=== PATIENT | female | born 1950 | race Caucasian/White ===

== ENCOUNTER 2020-12-04 12:43 | Inpatient (IN) | payer MEDICARE, SELFPAY ==
[~2020-12-04] VITALS: Ht 162.6 cm; Wt 34.3 kg
[2020-12-04] MEDS ORDERED: NS 500 ML IV ONE (13:30)
--- NOTE | 2020-12-04 13:52 | REP ---
INDICATION: weakness. COMPARISON: None TECHNIQUE: Portable AP chest with the patient sitting. FINDINGS: The patient is rotated. There is diffuse interstitial coarsening and mild airspace disease throughout the right lung suggesting of infiltrate. There is mild interstitial coarsening throughout the left lung. No airspace disease. There are no pleural effusions. Cardiac size is normal. The lucille, mediastinum, and skeletal structures are unremarkable for positioning. IMPRESSION: Probable diffuse infiltrate throughout the right lung, however, there are no comparison studies to cyst in determining if this is a chronic change. Patient rotated. 1. Mild interstitial coarsening throughout the left lung. <Electronically signed by Nadeem Carney > 12/04/20 [id number]
[2020-12-04 15:36] LABS: RSV AMPLIFICATION NEGATIVE (NEGATIVE)
[2020-12-04] MEDS ORDERED: PIPERACILLIN/TAZOBACTAM SOD 3.375 GM in D5W MINI-BAG PLUS 50 ML IV ONE (17:15)
[2020-12-04] MEDS ORDERED: HYOS125TA PO (17:25)
[2020-12-04] MEDS ORDERED: FENT1DIS14 TOP (17:25)
[2020-12-04] MEDS ORDERED: CARB1SUS PO (17:25)
[2020-12-04] MEDS ORDERED: LORA2CON PO (17:25)
[2020-12-04] MEDS ORDERED: HYDR1LIQ PO (17:25)
--- NOTE | 2020-12-04 17:43 | HPE ---
HISTORY AND PHYSICAL DATE OF ADMISSION: 12/04/2020 CHIEF COMPLAINT: Suspected aspiration pneumonia. 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 HISTORY OF PRESENT ILLNESS: Jessica Schmidt is a 70-year-old first encounter at , brought by her daughter who lives in [place], who cannot take care of her mother at home anymore. Patient's medical history is most significant for squamous cell carcinoma of the tongue diagnosed 10/27/2020. She has severe protein-calorie malnutrition. Most of her medical care has been through the . The patient lives up in [place], [place] and it looks like she was in [facility] for a perforated viscus 10/25 to 11/15/2020. During that hospitalization, she had a G-tube with repair of a duodenal injury laparoscopic converted to open emergency exploratory laparotomy. During the course of hospitalization, she was found to have squamous cell carcinoma of the tongue and was on Hospice, but disenrolled from Hospice and wants to "fight." She does, however, want DNR/DNI and comfort measure status so we are trying to balance these competing interests. PAST MEDICAL HISTORY: 1. Seizure disorder. 2. GERD. 3. Hyperlipidemia. 4. Squamous cell carcinoma of the tongue status post chemotherapy and radiation therapy in October 2017. They planned a total glossectomy, but her condition was felt to be too advanced for that, and she was converted to palliative care and discharged to Hospice. [facility] has apparently visited the patient, but the patient expressed some resistance to palliative care and said she "wanted to fight." Today, however, she is agreeable to comfort measures and DNR/DNI status. MEDICATIONS: 1. She was using Fentanyl 25 plus 12 mcg patch every 72 hours and Hydromorphone through a G-tube q. 2 hours p.r.n. 2. Carbamazepine 200 mg t.i.d. through a G-tube. SOCIAL HISTORY: Thirty-pack year smoker who quit two years ago. ALLERGIES: Per EMR none known. FAMILY HISTORY: Non-contributory. REVIEW OF SYSTEMS: Not obtainable. PHYSICAL EXAMINATION: VITAL SIGNS: Her systolic pressure was 77/50 and her pulse was 115. GENERAL APPEARANCE: The patient is lying in bed. She is uncooperative. She received Narcan in the field and is having some withdrawal symptoms of yawning and irritability. She clutches at the stethoscope and examining hands. She is not able to speak and she does not cooperative with an oral exam. She looks premorbid, profoundly cachectic with temporal wasting, and atrophy of muscles of the upper and lower extremities. HEENT: Grossly unremarkable, but I could not look in her mouth. LUNGS: Clear. HEART: Regular rhythm. ABDOMEN: Soft and nontender. G-tube present. EXTREMITIES: No peripheral edema. Legs are somewhat contracted. I could not turn her to check for pressure sores. LABORATORY DATA: All pending. COVID test was negative. IMAGING DATA: Chest x-ray showed diffuse infiltrate in the right lung, diffuse interstitial changes in the left lung. IMPRESSION: 1. Right lung pneumonia probably aspiration. The patient is DO NOT RESUSCITATE (DNR) / DO NOT INTUBATE (DNI) status with comfort measures only, but wants antibiotics and intravenous (IV) fluid. I did meet with her daughter, Itzel, today in the presence of the patient. She has conflicted feelings as she knows her mother is near and wants her comfort to be the primary goal of therapy; however, she would like her to receive some IV fluid and antibiotics; so I think we can accommodate until we at least get the patient admitted and help the family orient to the grave situation. We will continue Zosyn and I have ordered IV fluids. 2. Protein-calorie malnutrition feeding through a G-tube. 3. 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 Not a candidate for surgical treatment. She has received chemo and radiation therapy in the past.
[2020-12-04] MEDS: D5W/0.9% SODIUM CHLORIDE 1,000 ML IV SCH ×2 (18:01→22:17)
[2020-12-04 18:46] VITALS: BP 78/48
[2020-12-04] MEDS: HYOSCYAMINE SULFATE 0.125 MG SUBL TABLET PO SCH (20:00)
[2020-12-04 20:28] LABS: VENOUS BASE EXCESS 3.7 (-2.0-2.0); VENOUS HCO3 29.2 MEQ/L (23.0-27.0); VENOUS O2 SATURATION 58.8 % (60.0-80.0); VENOUS PARTIAL PRESSURE CO2 47.6 mmHg (38.0-50.0); VENOUS PARTIAL PRESSURE O2 33.4 mmHg (30.0-50.0); VENOUS PH 7.405 UNITS (7.330-7.430); VENOUS TOTAL CO2 30.6 MEQ/L (24.0-28.0)
[2020-12-04 20:34] LABS: HEMATOCRIT 37.9 % (36.0-47.0); HEMOGLOBIN 10.5 g/dl (12.0-15.5); MEAN CORPUSCULAR HEMOGLOBIN 26.3 pg (27.0-33.0); MEAN CORPUSCULAR HGB CONC 27.7 g/dl (32.0-36.5); MEAN CORPUSCULAR VOLUME 94.8 fl (80.0-96.0); PLATELET COUNT, AUTOMATED 386 10^3/uL (150-450); WHITE BLOOD COUNT 21.9 10^3/uL (4.0-10.0)
[2020-12-04 21:12] LABS: MONOCYTES 3 % (0-5); NEUTROPHILS 85 % (28-66)
[2020-12-04 21:13] LABS: ANISOCYTOSIS 1+; PLATELET ESTIMATE NORMAL (NORMAL); POIKILOCYTOSIS 1+; TARGET CELLS 1+
[2020-12-04 21:14] LABS: HYPOCHROMASIA 2+; OVALOCYTES 1+; PLATELET CLUMPS SMALL AMT
[2020-12-04 21:14] LABS: ALBUMIN 1.9 GM/DL (3.2-5.2); BILIRUBIN,TOTAL 0.5 MG/DL (0.2-1.0); CALCIUM LEVEL 9.2 MG/DL (8.8-10.2); CREATININE FOR GFR 1.37 MG/DL (0.55-1.30); GLOMERULAR FILTRATION RATE 40.3 (>39); POTASSIUM SERUM 3.6 MEQ/L (3.5-5.1); PREALBUMIN 11.8 MG/DL (20.0-40.0); TOTAL PROTEIN 8.2 GM/DL (6.4-8.2)
[2020-12-04] MEDS: carBAMazepine 100MG 5ML SUSP ORAL SYRINGE *DRAW UP EXACT DOSE PO SCH (22:18)
[2020-12-05] MEDS: PIPERACILLIN/TAZOBACTAM SOD 3.375 GM in D5W MINI-BAG PLUS 50 ML IV SCH ×4 (01:05→23:14)
[2020-12-05] MEDS: HYOSCYAMINE SULFATE 0.125 MG SUBL TABLET PO SCH ×7 (01:05→23:26)
[2020-12-05 05:00] VITALS: BP 98/50
[2020-12-05] MEDS ORDERED: D5W/0.45% SODIUM CHLORIDE 1,000 ML IV SCH (07:20)
[2020-12-05] MEDS: ENOXAPARIN 30MG/0.3ML SYRINGE (J1650 PER 10MG) SC SCH ×2 (07:57→08:00)
[2020-12-05 08:10] LABS: HEMOGLOBIN 9.3 g/dl (12.0-15.5); MEAN CORPUSCULAR HEMOGLOBIN 26.6 pg (27.0-33.0); MEAN CORPUSCULAR HGB CONC 28.2 g/dl (32.0-36.5); MEAN CORPUSCULAR VOLUME 94.3 fl (80.0-96.0); PLATELET COUNT, AUTOMATED 338 10^3/uL (150-450); WHITE BLOOD COUNT 17.8 10^3/uL (4.0-10.0)
[2020-12-05 08:39] LABS: CALCIUM LEVEL 9.1 MG/DL (8.8-10.2); CREATININE FOR GFR 1.11 MG/DL (0.55-1.30); GLOMERULAR FILTRATION RATE 51.4 (>39); POTASSIUM SERUM 3.2 MEQ/L (3.5-5.1)
--- NOTE | 2020-12-05 10:38 | IPN ---
PROGRESS NOTE DATE: 12/05/2020 SUBJECTIVE: Jessica is seen [facility]. She was admitted basically for terminal care. She has nonoperative squamous cell carcinoma of the tongue, has been evaluated at [facility], was discharged on Hospice Care but after arriving at the home of her daughter in [place] (patient lives in [place]), the patient expressed that she wanted to "fight more" which the Hospice interpreted as not being consistent with her goals. The daughter brought her into the Emergency Room, cannot take care of her at home and we are working our way around conflicting emotions around her end of life care. The patient is NPO. She is asking to take something by mouth. She has an aspiration pneumonia. She is a DNR/DNI. OBJECTIVE: VITAL SIGNS: Blood pressure is 98/50, pulse is 100, afebrile 93% O2 saturation on 4 liters. GENERAL APPEARANCE: She is cachetic and showing signs of severe malnutrition. LUNGS: Scattered rhonchi on the right. HEART: Regular rate and rhythm. ABDOMEN: Soft, scaphoid, nontender. EXTREMITIES: Wasted. There is no edema. Lower extremities are a bit contracted. LABORATORY DATA: White count is down to 17.8, hemoglobin is 9.3, platelets are 338,000. She had labs drawn yesterday. Her sodium was 157, came back at 8 o'clock last night. I do not think this was reported anywhere. She was on normal saline overnight so now this morning her sodium is 159, potassium is 3.2. BUN 53, creatinine is 1.1. IMPRESSION: 1. Sepsis from aspiration pneumonia. She is on IV Zosyn which we will continue. She is currently NPO. She wants to try to eat, will get a Speech Therapy consult. She is fed through a G-tube. 2. Severe protein calorie malnutrition, continue G-tube feeding. Will get a dietary consultation. 3. 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 She has received chemoradiation therapy in the past. She is an appropriate candidate for Hospice care. I had a jason discussion with her daughter, Itzel, in the Emergency Room. Her goal is to really keep her mother alive long enough for family members to come from various parts of the country and expect to arrive in a week. She would like her to have IV antibiotics and IV fluids until then at which case anticipation is that with family support she can transition to Hospice care. Towards that end, I would consider a Hospice consultation towards the end of the week so things can be lined up after the family arrives. Patient's status is comfort measures only with the exception of IV antibiotics and IV fluids. The daughter does want the primary goal of her treatment to provide comfort. 4. Severe hypernatremia, as noted above, lab work returned late last night. IV fluids with normal saline continued overnight. I changed her to half normal saline looking for a gradual reduction of sodium. Will add supplemental potassium to the IV fluid and I have also ordered some potassium runs. 5. Hypokalemia, potassium runs have been ordered.
[2020-12-05] MEDS: carBAMazepine 100MG 5ML SUSP ORAL SYRINGE *DRAW UP EXACT DOSE PO SCH ×3 (10:39→20:42)
[2020-12-05] MEDS: KCL 10MEQ/100ML SWI (KRUN) 10 MEQ in IV 1 EA IV SCH ×4 (10:40→15:53)
[2020-12-05] MEDS: KCL 20MEQ IN D5/0.45NS 1000ML 1,000 ML IV SCH (10:41)
[2020-12-05 14:00] VITALS: BP 83/53
[2020-12-05] MEDS ORDERED: FENTANYL REMOVAL DOCUMENTATION MISC XX ONE (16:30)
--- NOTE | 2020-12-05 19:18 | CR.PDOC ---
General Date of Consultation: Dec 05, 2020 Referring Provider: Willie Rea MD Attending Physician: Willie Rea MD Consultation REASON FOR CONSULTATION/CHIEF COMPLAINT: Prognosis for base of tongue cancer. HISTORY OF PRESENT ILLNESS: --Obtained from [facility] records. 70-year-old who was treated for squamous cell carcinoma of tongue base in 2017 with chemotherapy and radiation therapy. Found to have recurrence with a large ulcerative lesion extending from her right base of tongue into her oral tongue in August 2020. She was admitted in October 2020 to [facility] for a gastrostomy tube placement and plan for total glossectomy after G-tube placement. She de veloped a duodenal injury after procedure and underwent explore lap for duodenal leak. Subsequently, she had functional deterioration and originally planned total glossectomy was deferred because of malnutrition and poor performance status. She was sent home with home hospice. She is currently admitted for suspected aspiration pneumonia, dehydration and malnutrition. Apparently there was a decision to withdraw from hospice care. I could not obtain history from patient, as she was extremely drowsy and did not answer questions, except to mumble unintelligible words. ALLERGIES: Please see below. HOME MEDICATIONS: Please see below. PAST MEDICAL HISTORY: Base of tongue squamous cell carcinoma. Seizures. FAMILY HISTORY: Negative for cancer. SOCIAL HISTORY: Former smoker. REVIEW OF SYSTEMS: Could not be obtained from patient, as patient extremely drowsy and mumbled when asked questions. PHYSICAL EXAMINATION: VITAL SIGNS: Please see below. GENERAL APPEARANCE: Extremely cachectic, very drowsy, no acute respiratory distress. HEENT: Pinkish conjunctiva, anicteric. RESPIRATORY: Fair entry. No rales, rhonchi, no wheezes CARDIOVASCULAR: S1, S2 regular. ABDOMEN: Soft, nontender, no guarding. EXTREMITIES: No pedal edema. No clubbing. No cyanosis. NEUROLOGICAL: Extremely drowsy. LABORATORY DATA: Please see below. ASSESSMENT/PLAN: Recurrent squamous cell carcinoma of base of tongue. Poor performance status with ECOG PS of 4. Significant malnutrition/cachexia, likely related to advanced base of tongue cancer. Poor prognosis discussed with the patient's daughter Itzel Troncoso. The patient is not a candidate for any systemic treatment at this time because of poor performance status ECOG PS 4, bedbound and unable to take care of own daily needs. I also discussed that she likely has very limited life expectancy. Hospice care would be appropriate. If in the unlikely event that she does recover functional status, she may be considered for systemic treatment. Above discussed with . Itzel Troncoso, the patient's daughter. Thank you for referring Ms. Jessica Schmidt. Vital Signs/I&O Vital Signs Date Time Temp Pulse Resp B/P (MAP) Pulse Ox O2 Delivery O2 Flow Rate FiO2 12/05/20 14:52 4.0 12/05/20 14:00 98.3 76 19 83/53 (63) 82 Nasal Cannula I&O- Last 24 Hours up to 6 AM 12/05/20 06:00 Intake Total 1450 ml Balance 1450 ml Laboratory Data Labs 24H Laboratory Tests 2 12/04/20 20:07: Anion Gap 8, Glomerular Filtration Rate 40.3, Calcium Level 9.2, Total Bilirubin 0.5, Aspartate Amino Transf (AST/SGOT) 72H, Alanine Aminotransferase (ALT/SGPT) 53, Alkaline Phosphatase 137H, Total Protein 8.2, Albumin 1.9L, Albumin/Globulin Ratio 0.3L, Prealbumin 11.8L 12/04/20 20:13: Neutrophils (%) (Auto) , Nucleated Red Blood Cells % (auto) 0.0, Neutrophils 85H, Band Neutrophils 12H, Monocytes (Manual) 3, Hypochromasia 2+, Poikilocytosis 1+, Anisocytosis 1+, Target Cells 1+, Ovalocytes 1+, Platelet Estimate NORMAL, Clumped Platelets SMALL AMT, Blood Gas Bicarbonate Standard 27.0, Venous Blood pH 7.405, Venous Blood Partial Pressure CO2 47.6, Venous Blood Partial Pressure O2 33.4, Venous Blood Total Carbon Dioxide 30.6H, Venous Blood HCO3 29.2H, Venous Blood Oxygen Saturation 58.8L, Venous Blood Base Excess 3.7H, Lactic Acid Level 4.3*H 12/05/20 07:45: Anion Gap 4L, Glomerular Filtration Rate 51.4, Calcium Level 9.1, Nucleated Red Blood Cells % (auto) 0.0 CBC/BMP Laboratory Tests 12/04/20 20:07 12/04/20 20:13 12/05/20 07:45 Microbiology Microbiology 12/04/20 Blood Culture, Received Pending 12/04/20 Blood Culture - Preliminary, Resulted No growth after 24 hours . All specim... Allergies Coded Allergies: No Known Allergies (Unverified , 12/04/20) Home Medications Scheduled Carbamazepine (Carbamazepine) 100 Mg/5 Ml Oral.susp, 10 ML PO TID, (Reported) Fentanyl (Fentanyl) 25 Mcg Patch.td72, 1 PATCH TOP Q3RD, (Reported) PATCH APPLIED TO SHOULDER Hyoscyamine Sulfate (Hyoscyamine Sulfate) 0.125 Mg Tab.subl, 0.125 MG PO Q4H, (Reported) Levofloxacin (Levofloxacin) 500 Mg Tablet, 500 MG PO DAILY for 5 Days, #5 Scheduled PRN Hydromorphone Hcl (Hydromorphone HCl) 1 Mg/1 Ml Liquid, 1 MG PO Q2H PRN for PA IN, (Reported) Lorazepam (Lorazepam Intensol) 2 Mg/1 Ml Oral.conc, 0.25 ML PO BID PRN for ANXIETY/AGITATION, (Reported) DAVID MERINO MD Dec 05, 2020 19:18
[2020-12-05 22:00] VITALS: BP 83/42
[2020-12-06] MEDS: HYOSCYAMINE SULFATE 0.125 MG SUBL TABLET PO SCH ×6 (03:22→23:41)
[2020-12-06] MEDS: KCL 20MEQ IN D5/0.45NS 1000ML 1,000 ML IV SCH ×4 (03:24→23:41)
[2020-12-06 06:00] VITALS: BP 83/44
[2020-12-06 06:23] LABS: HEMATOCRIT 30.1 % (36.0-47.0); HEMOGLOBIN 8.5 g/dl (12.0-15.5); MEAN CORPUSCULAR HEMOGLOBIN 26.9 pg (27.0-33.0); MEAN CORPUSCULAR HGB CONC 28.2 g/dl (32.0-36.5); MEAN CORPUSCULAR VOLUME 95.3 fl (80.0-96.0); PLATELET COUNT, AUTOMATED 290 10^3/uL (150-450); RED BLOOD COUNT 3.16 10^6/uL (4.00-5.40); WHITE BLOOD COUNT 13.4 10^3/uL (4.0-10.0)
[2020-12-06 06:55] LABS: BLOOD UREA NITROGEN 30 MG/DL (7-18); CALCIUM LEVEL 8.3 MG/DL (8.8-10.2); CARBAMAZEPINE (TEGRETOL) LEVEL 8.3 UG/ML (4.0-10.0); CARBON DIOXIDE LEVEL 32 MEQ/L (21-32); CHLORIDE LEVEL 118 MEQ/L (98-107); CREATININE FOR GFR 0.65 MG/DL (0.55-1.30); GLOMERULAR FILTRATION RATE > 60.0 (>39); GLUCOSE, FASTING 96 MG/DL (70-100); POTASSIUM SERUM 3.6 MEQ/L (3.5-5.1); SODIUM LEVEL 156 MEQ/L (136-145)
[2020-12-06] MEDS: carBAMazepine 100MG 5ML SUSP ORAL SYRINGE *DRAW UP EXACT DOSE PO SCH ×3 (08:46→20:16)
[2020-12-06] MEDS: PIPERACILLIN/TAZOBACTAM SOD 3.375 GM in D5W MINI-BAG PLUS 50 ML IV SCH (08:46)
[2020-12-06] MEDS: ENOXAPARIN 30MG/0.3ML SYRINGE (J1650 PER 10MG) SC SCH (08:48)
[2020-12-06] MEDS ORDERED: fentaNYL 25 MCG/HR PATCH TOP SCH (09:00)
[2020-12-06] MEDS ORDERED: LEVO500T3 PO (10:12)
--- NOTE | 2020-12-06 11:07 | DS.PDOC ---
Discharge Summary General Date of Admission Dec 04, 2020 at 17:25 Date of Discharge 12/08/2020 - Discharge date was amended - Patient remained in the hospital for an additional day in order to help clarify which home she was going to - Patient remained in the hospital for an additional day after patient was vomiting Discharge Summary PROCEDURES PERFORMED DURING STAY: [None]. ADMITTING DIAGNOSES / DISCHARGE DIAGNOSES: Aspiration pneumonia Hypernatremia Hypokalemia Acute renal failure Lactic acidosis Transaminitis Squamous cell carcinoma the tongue 2/2 HPV Protein calorie malnutrition Functional quadriplegia DVT prophylaxis COMPLICATIONS/CHIEF COMPLAINT: Shortness of breath HISTORY OF PRESENT ILLNESS / HOSPITAL COURSE: Patient is a 70-year-old female who presented to [facility] brought in by her daughter. At home. Patient was under hospice care for her metastatic squamous cell carcinoma of the tongue, patient has severe protein calorie malnutrition. Upon arrival to emergency room agents daughter had reported that she wanted to "fight"and went to receive a second opinion from an oncologist here. Patient was seen and evaluated by medical oncology, Dr. Berg on 12/05. Patient and family were advised that patient's condition is terminal and that hospice would be appropriate given that she is not a candidate to receive any chemotherapy at this time. I discussed the recommendations again with the patient's daughter, Itzel Troncoso, as well as son, Bismark Mariscal. , We will complete a short course of antibiotics as an outpatient and she will resume home hospice care. DISCHARGE MEDICATIONS: Please see below. ALLERGIES: Please see below. PHYSICAL EXAMINATION ON DISCHARGE: VITAL SIGNS: Please see below. GENERAL: Laying in bed, appears comfortable, not in any acute distress Full exam not completed LABORATORY DATA: Please see below. IMAGING: CXR 12/06: Probable diffuse infiltrate throughout the right lung, however, there are no comparison studies to cyst in determining if this is a chronic change. Patient rotated. 1. Mild interstitial coarsening throughout the left lung. PROGNOSIS: Guarded ACTIVITY: [As tolerated]. DISCHARGE PLAN: Follow-up with primary care provider within the next 7 days as needed Remain compliant with treatment plan and medications Return to the ER if her pain is uncontrolled DISPOSITION: Home with hospice DISCHARGE CONDITION: [Stable]. TIME SPENT ON DISCHARGE: 35 minutes. Vital Signs/I&Os Vital Signs Date Time Temp Pulse Resp B/P (MAP) Pulse Ox O2 Delivery O2 Flow Rate FiO2 12/06/20 09:05 4.0 12/06/20 06:00 97.5 82 18 83/44 (57) 96 Nasal Cannula I&O- Last 24 Hours up to 6 AM 12/06/20 06:00 Intake Total 480 ml Output Total 100 ml Balance 380 ml Laboratory Data Labs 24H Laboratory Tests 2 12/06/20 06:12: Nucleated Red Blood Cells % (auto) 0.0, Anion Gap 6L, Glomerular Filtration Rate > 60.0, Calcium Level 8.3L, Carbamazepine (Tegretol) Level 8.3 CBC/BMP Laboratory Tests 12/06/20 06:12 Microbiology Microbiology 12/04/20 Blood Culture - Preliminary, Resulted No growth after 24 hours . All specim... 12/04/20 Blood Culture - Preliminary, Resulted No growth after 24 hours . All specim... Discharge Medications Scheduled Carbamazepine (Carbamazepine) 100 Mg/5 Ml Oral.susp, 10 ML PO TID, (Reported) Fentanyl (Fentanyl) 25 Mcg Patch.td72, 1 PATCH TOP Q3RD, (Reported) PATCH APPLIED TO SHOULDER Hyoscyamine Sulfate (Hyoscyamine Sulfate) 0.125 Mg Tab.subl, 0.125 MG PO Q4H, (Reported) Levofloxacin (Levofloxacin) 500 Mg Tablet, 500 MG PO DAILY Scheduled PRN Hydromorphone Hcl (Hydromorphone HCl) 1 Mg/1 Ml Liquid, 1 MG PO Q2H PRN for PAIN, (Reported) Lorazepam (Lorazepam Intensol) 2 Mg/1 Ml Oral.conc, 0.25 ML PO BID PRN for ANXIETY/AGITATION, (Reported) Allergies Coded Allergies: No Known Allergies (Unverified , 12/04/20) ELIER THAKUR MD Dec 06, 2020 11:07
[2020-12-06] MEDS: LevoFLOXacin 750 MG TABLET PEG SCH (12:22)
[2020-12-06] MEDS ORDERED: SCOPOLAMINE 1MG TRANSDERMAL PATCH TOP PRN (17:05)
[2020-12-06] MEDS ORDERED: LORazepam 1 MG TAB PO PRN (17:05)
[2020-12-06] MEDS: MORPHINE 10MG/0.5ML ORAL CONCENTRATE SOLUTION U/D SL PRN (17:20)
[2020-12-07] MEDS: HYOSCYAMINE SULFATE 0.125 MG SUBL TABLET PO SCH ×5 (04:34→20:17)
[2020-12-07 05:45] LABS: HEMATOCRIT 29.8 % (36.0-47.0); HEMOGLOBIN 8.5 g/dl (12.0-15.5); MEAN CORPUSCULAR HEMOGLOBIN 26.5 pg (27.0-33.0); MEAN CORPUSCULAR HGB CONC 28.5 g/dl (32.0-36.5); MEAN CORPUSCULAR VOLUME 92.8 fl (80.0-96.0); PLATELET COUNT, AUTOMATED 282 10^3/uL (150-450); RED BLOOD COUNT 3.21 10^6/uL (4.00-5.40)
[2020-12-07 06:17] LABS: BLOOD UREA NITROGEN 19 MG/DL (7-18); CALCIUM LEVEL 7.7 MG/DL (8.8-10.2); CARBON DIOXIDE LEVEL 28 MEQ/L (21-32); CHLORIDE LEVEL 117 MEQ/L (98-107); CREATININE FOR GFR 0.35 MG/DL (0.55-1.30); GLOMERULAR FILTRATION RATE > 60.0 (>39); GLUCOSE, FASTING 142 MG/DL (70-100); POTASSIUM SERUM 4.4 MEQ/L (3.5-5.1); SODIUM LEVEL 150 MEQ/L (136-145)
[2020-12-07] MEDS: carBAMazepine 100MG 5ML SUSP ORAL SYRINGE *DRAW UP EXACT DOSE PO SCH ×3 (08:35→20:17)
--- NOTE | 2020-12-07 10:32 | IPNPDOC ---
Text Note Date of Service The patient was seen on 12/07/20. NOTE Subjective: Patient is a 70-year-old female who presented to [facility] brought in by her daughter. At home. Patient was under hospice care for her metastatic squamous cell carcinoma of the tongue, patient has severe protein calorie malnutrition. Upon arrival to emergency room agents daughter had reported that she wanted to "fight"and went to receive a second opinion from an oncologist here. Patient was seen and evaluated by medical oncology, Dr. Berg on 12/05. Patient and family were advised that patient's condition is terminal and that hospice would be appropriate given that she is not a candidate to receive any chemotherapy at this time. I discussed the recommendations again with the patient's daughter, Itzel Troncoso, as well as son, Bismark Mariscal. will complete a short course of antibiotics as an outpatient and she will resume home hospice care. Patient was seen and examined at the bedside. She remained in the hospital for an additional day in order to help clarify transition to home hospice. Objective: Vitals (See below) General: Lying in bed, appears comfortable, AAOx3 Full exam not completed Assessment and plan: - Will be transitioned to home hospice - Non-essential medications were discontinued - Medications for pain and anxiety relief alone were instituted - After discussion with family; will continue short course of antibiotics as an outpatient VSAudelia, I+O VSAudelia I+O Laboratory Tests 12/07/20 05:34 Vital Signs Date Time Temp Pulse Resp B/P (MAP) Pulse Ox O2 Delivery O2 Flow Rate FiO2 12/07/20 09:03 4.0 12/06/20 06:00 97.5 82 18 83/44 (57) 96 Nasal Cannula I&O- Last 24 Hours up to 6 AM 12/07/20 06:00 Intake Total 0 ml Output Total 300 ml Balance -300 ml ELIER THAKUR MD Dec 07, 2020 10:32
[2020-12-07] MEDS: MORPHINE 10MG/0.5ML ORAL CONCENTRATE SOLUTION U/D SL PRN (17:15)
[2020-12-08] MEDS: HYOSCYAMINE SULFATE 0.125 MG SUBL TABLET PO SCH ×4 (00:15→11:05)
[2020-12-08] MEDS: LevoFLOXacin 750 MG TABLET PEG SCH (05:14)
[2020-12-08] MEDS: carBAMazepine 100MG 5ML SUSP ORAL SYRINGE *DRAW UP EXACT DOSE PO SCH (08:45)
--- NOTE | 2020-12-08 10:53 | IPNPDOC ---
Text Note Date of Service The patient was seen on 12/08/20. NOTE Subjective: Patient is a 70-year-old female who presented to [facility] brought in by her daughter. At home. Patient was under hospice care for her metastatic squamous cell carcinoma of the tongue, patient has severe protein calorie malnutrition. Upon arrival to emergency room agents daughter had reported that she wanted to "fight"and went to receive a second opinion from an oncologist here. Patient was seen and evaluated by medical oncology, Dr. Berg on 12/05. Patient and family were advised that patient's condition is terminal and that hospice would be appropriate given that she is not a candidate to receive any chemotherapy at this time. Recommendations were given to the patient's daughter, Itzel Troncoso, as well as son, Bismark Mariscal. Patient remained in the hospital for 2 additional days; one day to help determine disposition, second day because of vomiting / suctioning. Patient was seen and examined at the bedside. Appears to be comfortable. Objective: Vitals (See below) General: Patient is laying in bed and appears to be comfortable, she is awake and alert Full exam not completed Assessment and plan: - Transitioning to home hospice - Non-essential medications were discontinued - Medications for pain and anxiety relief alone were instituted - Please see discharge summary VS,Fishbone, I+O VS, Fishbone, I+O Vital Signs Date Time Temp Pulse Resp B/P (MAP) Pulse Ox O2 Delivery O2 Flow Rate FiO2 12/07/20 20:00 4.0 12/07/20 17:45 22 12/06/20 06:00 97.5 82 83/44 (57) 96 Nasal Cannula I&O- Last 24 Hours up to 6 AM 12/08/20 06:00 Intake Total 0 ml Output Total 0 ml Balance 0 ml ELIER THAKUR MD Dec 08, 2020 10:53
== END 2020-12-08 11:53 | disposition hospice, home (50) | DRG 951 ==
LOC: EDBD 12:43 → M ED 12:43 → M ED INP 17:25 → ENRESERV 17:57 → M PCU 18:45 → M MSPAV 20:50
PROVIDERS: ADMIT Family Medicine; ATTEND Internal Medicine
DX: Z51.5 Encounter for palliative care (principal); E43 Unspecified severe protein-calorie malnutrition; J69.0 Pneumonitis due to inhalation of food and vomit; R53.2 Functional quadriplegia; E87.0 Hyperosmolality and hypernatremia; E87.2 Acidosis; N17.9 Acute kidney failure, unspecified; C02.9 Malignant neoplasm of tongue, unspecified; E87.6 Hypokalemia; C01 Malignant neoplasm of base of tongue; G40.909 Epilepsy, unspecified, not intractable, without status epilepticus; K21.9 Gastro-esophageal reflux disease without esophagitis; Z92.21 Personal history of antineoplastic chemotherapy; Z92.3 Personal history of irradiation; E78.5 Hyperlipidemia, unspecified; Z66 Do not resuscitate; Z93.1 Gastrostomy status; Z87.891 Personal history of nicotine dependence; Z79.899 Other long term (current) drug therapy